=== PATIENT | female | born 1990 | race Caucasian/White ===

== ENCOUNTER → 2016-06-22 | Emergency (ER) | payer OTHER ==
[~2016-06-22] VITALS: Ht 162.6 cm; Wt 103.9 kg
[~2016-06-22] MED LIST: ACET500C5 PO; ACETAMINOPHEN 325 MG TAB PO ONE
[2016-06-22 19:21] VITALS: Ht 162.6 cm; Wt 103.9 kg
[2016-06-22 21:04] LABS: ADD SCAN DIFF NO
[2016-06-22 21:08] LABS: BASOPHILS % 0.1 % (0.0-2.0); EOSINOPHILS % 0.1 % (0.0-7.0); HEMATOCRIT 36.9 % (37.0-47.0); HEMOGLOBIN 12.5 g/dl (12.0-16.0); LYMPHOCYTES # 0.6 10^3/ul (0.8-2.9); LYMPHOCYTES % 6.8 % (15.0-51.0); MEAN CORPUSCULAR HEMOGLOBIN 29.7 pg (29.0-33.0); MEAN CORPUSCULAR HGB CONC 33.9 g/dl (32.0-37.0); MEAN CORPUSCULAR VOLUME 87.6 fl (82.0-101.0); MEAN PLATELET VOLUME 9.8 fl (7.4-10.4); MONOCYTE # 0.7 10^3/ul (0.3-0.9); MONOCYTES % 7.3 % (0.0-11.0); NEUTROPHIL # 7.7 10^3/ul (1.6-7.5); NEUTROPHILS % 85.1 % (39.0-77.0); PLATELET COUNT 225 10^3/UL (140-415); RED BLOOD COUNT 4.21 10^6/ul (4.20-5.40); RED CELL DISTRIBUTION WIDTH 12.3 % (11.5-14.5)
[2016-06-22 21:18] LABS: ALBUMIN 3.8 g/dl (3.3-4.9)
[2016-06-22 21:18] LABS: ADD UMIC NO; URINE BILIRUBIN (Dip) NEGATIVE (NEGATIVE); URINE BLOOD (Dip) NEGATIVE (NEGATIVE); URINE COLOR LT. YELLOW (YELLOW); URINE GLUCOSE (Dip) NEGATIVE (NEGATIVE); URINE KETONES (Dip) NEGATIVE (NEGATIVE); URINE LEUKOCYTE ESTERASE (Dip) NEGATIVE (NEGATIVE); URINE NITRITE (Dip) NEGATIVE (NEGATIVE); URINE TOTAL PROTEIN (Dip) NEGATIVE (NEGATIVE); URINE UROBILINOGEN (Dip) 0.2 E.U./dL (0.1-1.0)
[2016-06-22 21:19] LABS: POTASSIUM 3.7 mmol/L (3.5-5.1)
[2016-06-22 21:21] LABS: ALBUMIN/GLOBULIN RATIO 1.05; BILIRUBIN,INDIRECT 0.1 mg/dl (0-1.1); BILIRUBIN,TOTAL 0.1 mg/dl (0.2-1.3); CREATININE 0.49 mg/dl (0.44-1.00); TOTAL PROTEIN 7.4 g/dl (6.1-8.1)
--- NOTE | 2016-06-22 21:56 | ERD ---
ER Documentation Chief Complaint Date/Time DATE: 06/22/16 TIME: 21:55 Chief Complaint 17 wks , pelvic pain, back pain HPI This 26-year-old male presents with some low back pain and fever at triage. She has no cough, sore throat, dysuria or vomiting. She has some mild lower abdominal pain. She is approximately 17 weeks by dates. She is receiving care. ROS All systems reviewed and are negative except as per history of present illness. Medications Home Meds Active Scripts Acetaminophen* (Tylophen*) 500 Mg Capsule, 1 CAP PO Q6H Y for PAIN AND OR ELEVATED TEMP, #18 CAP Prov:ALEXANDER WOLFE MD 06/22/16 Allergies Allergies: Coded Allergies: No Known Allergy (Unverified , 07/23/13) PMhx/Soc Medical and Surgical Hx: pt denies Medical Hx, pt denies Surgical Hx History of Surgery: No Anesthesia Reaction: No Hx Neurological Disorder: No Hx Respiratory Disorders: No Hx Cardiac Disorders: No Hx Psychiatric Problems: No Hx Miscellaneous Medical Probl: No (DENIES MED AND SURG HX.) Hx Alcohol Use: No Hx Substance Use: No Hx Tobacco Use: No Smoking Status: Never smoker Physical Exam Vitals Vital Signs Date Time Temp Pulse Resp B/P Pulse Ox O2 Delivery O2 Flow Rate FiO2 06/22/16 19:21 100.2 118 20 121/65 100 Physical Exam Const: [] Alert, [id number] per Head: Atraumatic Eyes: Normal Conjunctiva ENT: Normal External Ears, Nose and Mouth. Neck: Full range of motion..~ No meningismus. Resp: Clear to auscultation bilaterally Cardio: Regular rate and rhythm, no murmurs Abd: Soft, non distended. Normal bowel sounds. Very slight tenderness in the lower abdomen without tenderness at McBurney's point no Marin sign. Skin: No petechiae or rashes Back: No midline or flank tenderness. Minimal lower back tenderness without flank tenderness. Ext: No cyanosis, or edema Neur: Awake and alert Psych: Normal Mood and Affect Result Diagram: 06/22/16203106/22/162031 Results 24 hrs Laboratory Tests Test 06/22/16 20:21 06/22/16 20:32 Urine Color LT. YELLOW Urine Clarity CLEAR Urine pH 6.5 Urine Specific [place] 1.015 Urine Ketones NEGATIVE Urine Nitrite NEGATIVE Urine Bilirubin NEGATIVE Urine Urobilinogen 0.2 E.U./dL Urine Leukocyte Esterase NEGATIVE Urine Hemoglobin NEGATIVE Urine Glucose NEGATIVE% Urine Total Protein NEGATIVE White Blood Count 9.010^3/ul Red Blood Count 4.2110^6/ul Hemoglobin 12.5g/dl Hematocrit 36.9% Mean Corpuscular Volume 87.6fl Mean Corpuscular Hemoglobin 29.7pg Mean Corpuscular Hemoglobin Concent 33.9g/dl Red Cell Distribution Width 12.3% Platelet Count 32417^3/UL Mean Platelet Volume 9.8fl Neutrophils % 85.1% Lymphocytes % 6.8% Monocytes % 7.3% Eosinophils % 0.1% Basophils % 0.1% Nucleated Red Blood Cells % 0.0/100WBC Neutrophils # 7.710^3/ul Lymphocytes # 0.610^3/ul Monocytes # 0.710^3/ul Eosinophils # 0.010^3/ul Basophils # 0.010^3/ul Nucleated Red Blood Cells # 0.010^3/ul Sodium Level 137mmol/L Potassium Level 3.7mmol/L Chloride Level 101mmol/L Carbon Dioxide Level 24mmol/L Anion Gap 16 Blood Urea Nitrogen 3mg/dl Creatinine 0.49mg/dl Glucose Level 87mg/dl Calcium Level 9.0mg/dl Total Bilirubin 0.1mg/dl Direct Bilirubin 0.00mg/dl Indirect Bilirubin 0.1mg/dl Aspartate Amino Transf (AST/SGOT) 22IU/L Alanine Aminotransferase (ALT/SGPT) 25IU/L Alkaline Phosphatase 64IU/L Total Protein 7.4g/dl Albumin 3.8g/dl Globulin 3.60g/dl Albumin/Globulin Ratio 1.05 Lipase 55U/L Current Medications Medications (Trade) Dose Ordered Sig/Yuli Route PRN Reason Start Time Stop Time Status Last Admin Dose Admin Acetaminophen (Tylenol Tab) 650 mg ONCE ONCE PO 06/22/16 20:30 06/22/16 20:31 DC 06/22/16 20:25 Procedures/MDM CBC is normal. CMP is normal. Urine is negative for signs of infection. Pelvic ultrasound shows normal. Intrauterine second trimester without acute complications. Patient was given Tylenol for pain. Patient has pain in the lower abdomen, lower back suspicious for myalgias and febrile illness of a certain etiology, sepsis back for a viral illness. There is no signs or symptoms of acute abdomen, pneumonia, UTI, complications of . She will treated with Tylenol and further observation at home. The patient was stable with no new complaints during the ER course. Clinically, there is no current evidence to suggest meningitis, sepsis, acute abdomen, pneumonia, acute coronary syndrome, pulmonary embolism, or any other emergent condition appearing to require further evaluation or hospitalization. The patient should certainly return for any new or worsening symptoms per the aftercare instructions. They should otherwise follow-up with her primary care doctor for reevaluation this week. Departure Diagnosis: Primary Impression: Abdominal pain Abdominal location: lower abdomen, unspecified Qualified Code: R10.30 - Lower abdominal pain Condition: Stable Patient Instructions: Abdominal Pain, Early , Febrile Illness, Uncertain Cause (Adult) Additional Instructions: All examinations normal today. May be viral illness. Recheck for bleeding, new or worsening symptoms with primary care doctor this week ALEXANDER WOLFE MD Jun 22, 2016 21:56
[2016-06-22 22:11] VITALS: BP 105/55; PULSE 96; RESP 18; TEMP 98.4
--- NOTE | 2016-06-22 22:41 | RADRPT ---
PROCEDURE: Obstetrical ultrasound greater than 14 weeks CLINICAL INDICATION: Pelvic pain TECHNIQUE: Real time sonographic imaging of the gravid uterus is performed transabdominally and mu ltiple static valencia scale and Doppler images are submitted for review as are measurements. The image s are reviewed on the PACS. COMPARISON: No relevant exams are available FINDINGS: There is a single living intrauterine gestation in variable presentation. The heart beat is e stimated at 154 bpm. The measurements are as follows: BPD:3.36 cm HC:12.37 cm AC:11.06 cm FL:2.11 cm Estimated gestational age is 16 weeks 3 days. The estimated date of delivery is 12/04/2016. The estimated weight is 161 grams. Placenta is anterior and grade 0. There is no evidence of placenta previa or abruption. The amniotic fluid is qualitatively normal. RPTAT:HJJR IMPRESSION: 1. Single viable intrauterine gestation estimated at 16 weeks 3 days with the estimated date of deli very 12/04/2016. 2. Anterior grade 0 placenta without placenta previa or abruption. Physician Vivi Date Time Electronically viewed and signed by Physician Vivi on 06/22/2016 22:41 /
== END | disposition home or self-care (01) ==
LOC: FTE 19:12
DX: O26.892 Other specified pregnancy related conditions, second trimester (principal); R10.30 Lower abdominal pain, unspecified; R10.2 Pelvic and perineal pain; Z3A.17 17 weeks gestation of pregnancy
CPT/HCPCS: 36415; 76805; 80053; 81003; 83690; 85025; Z7502; Z7610